=== PATIENT | male | born 1970 | race Caucasian/White ===

== ENCOUNTER 2024-01-23 13:20 | Emergency (ER) | payer SELFPAY ==
[2024-01-23 13:34] VITALS: BP 160/79; PULSE 75; TEMP 36.6; O2SAT 98; BMI 27.6
--- NOTE | 2024-01-23 14:10 | ED_ITS ---
HPI - Abdominal Pain General: Chief Complaint: Abdominal Pain Stated Complaint: abd pain Time Seen by Provider: 01/23/24 14:10 History of Present Illness: 53-year-old male patient comes in today with right inguinal pain and discomfort. Patient has a right inguinal hernia that was protruding today and he was unable to reduce it. While in the emergency room waiting room patient states that the hernia reduced spontaneously. Patient now has no pain or discomfort and hernia is no longer felt. Patient appears in no pain. Patient appears nontoxic. Review of Systems General: Reports: 10 or more systems reviewed and unremarkable except in HPI and below Physical Exam Const: COMMON NORMALS: alert HENMT: COMMON NORMALS: normocephalic HEAD & SCALP: normocephalic Neck/C-Spine: COMMON NORMALS: full ROM Chest: COMMONS NORMALS: normal inspection of the chest Resp: COMMON NORMALS: normal respiratory effort Cardio: COMMON NORMALS: regular rate and regular rhythm RATE: regular rate RHYTHM: regular rhythm GI: COMMON NORMALS: Soft to palpation and non-tender PALPATION: Yes Soft to palpation : OTHER: No observable hernia noted. Patient is nontender. No redness or induration of skin is noted. Extremity: COMMON NORMALS: normal to inspection Neuro: SENSORIUM/ORIENTATION: Yes alert Skin: COMMON NORMALS: no rashes or lesions noted GENERAL SKIN EXAM: no rashes or lesions noted Course Vital Signs: Vital signs: Vital Signs Temperature 97.8 F 01/23/24 13:34 Pulse Rate 75 01/23/24 13:34 Blood Pressure 160/79 01/23/24 13:34 Pulse Oximetry 98 01/23/24 13:34 Oxygen Delivery Me thod Room Air 01/23/24 13:34 MDM - Abdominal Pain Medical Decision Making Patient comes in today for a right inguinal hernia. Patient reports that the hernia reduced while waiting in the emergency department waiting room. Patient appears nontoxic at this time. Patient appears no pain. On exam there is no noticeable redness or induration. Respirations are even lungs are clear to auscultation. Skin is warm and dry. Vital signs are normal. Reviewed exam with patient and family with recommendations for treatment and follow-up. Case management was requested to assist with follow-up appointment for surgeon for correction of hernia. Differential Diagnosis Likely abdominal pain, acute appendicitis, constipation and small bowel obst ruction No radiology studies performed this visit Discharge Plan Discharge Patient Disposition: Home Clinical Impression: Inguinal hernia of right side without obstruction or gangrene Condition: Stable Discharge Orders: Discharge ED (Routine); Ordered 01/23/24 Ordered By: Aime Watters Discharge Diet: Usual diet Discharge Activity: Increase activity as tolerated Patient Instructions: Inguinal Hernia (ED) Activity Restrictions/Additional Instructions: Follow-up with surgeon for further evaluation and treatment. Return to ER for recurrent hernia that is nonreducible with increased redness and swelling at the site, high fever, inability to hold fluids down, no passing of gas or blood in stool. Coding Level of Care Code ED [employer] Professor for Reinaldo Franco
--- NOTE | 2024-01-24 08:53 | DCPLANNER ---
A message was sent to general surgery on 01/24/24 at 0853. [facility] to contact patient for appt.
== END 2024-01-23 14:33 | disposition home or self-care (01) ==
PROVIDERS: Emergency Provider Nurse Practitioner Family
DX: K40.90 Unilateral inguinal hernia, without obstruction or gangrene, not specified as recurrent (principal)
CPT/HCPCS: 99281